=== PATIENT | male | born 1940 | race Caucasian/White ===

== ENCOUNTER 2018-03-29 00:31 | Emergency (ER) | payer MEDICARE, BC ==
--- NOTE | 2018-03-29 01:00 | EDM.PDOC ---
ED HPI GENERAL MEDICAL PROBLEM - General Chief Complaint: Drug or Alcohol Abuse Stated Complaint: DEPRESSION Time Seen by Provider: 03/29/18 00:40 Source of Information: Reports: Patient, EMS History Limitations: Reports: Intoxication - History of Present Illness INITIAL COMMENTS - FREE TEXT/NARRATIVE: 77-year-old male who was on an anti-depressant, it was delivered to his house this week but he wasn't home so he has to go get it at the post office and hasn' t done that. Tonight he was drinking, he had 3 large cleo Cokes and was feeling sad so called 911. He is not suicidal nor has he ever been suicidal. He was evaluated by the police and EMS and the police department recommended he be checked out. Now that he is here he feels fine, is very talkative and does not appear depressed. Associated Symptoms: Reports: Other (Very hard of hearing) denies pain Pain Score (Numeric/FACES): 0 - Related Data Allergies Allergy/AdvReac Type Severity Reaction Status Date / Time No Known Allergies Allergy Verified 03/29/18 00:35 Past Medical History HEENT History: Reports: Hard of Hearing Cardiovascular History: Reports: Hypertension, [place], Stents Genitourinary History: Reports: BPH, Prostate Disorder, Other (See Below) Other Genitourinary History: Prostate CA Psychiatric History: Reports: Depression Endocrine/Metabolic History: Reports: Diabetes, Type II Hematologic History: Reports: Anticoagulation Therapy Oncologic (Cancer) History: Reports: Prostate - Past Surgical History Cardiovascular Surgical History: Reports: Coronary Artery Bypass GI Surgical History: Reports: Appendectomy, Bariatric Procedure, Other (See Below) Other GI Surgeries/Procedures: bowel abscess Neurological Surgical History: Reports: Other (See Below) Other Neurological Surgeries/Procedures: back surgery, unknown type Musculoskeletal Surgical History: Reports: Shoulder Surgery Social & Family History - Tobacco Use Smoking Status *Q: Never Smoker - Caffeine Use Caffeine Use: Reports: Coffee - Recreational Drug Use Recreational Drug Use: No ED ROS GENERAL - Review of Systems Review Of Systems: See Below Constitutional: Denies: Fever, Chills Respiratory: Denies: Shortness of Breath Cardiovascular: Denies: Chest Pain GI/Abdominal: Denies: Nausea, Vomiting Neurological: Denies: Headache Psychiatric: Reports: Depression - Physical Exam Exam: See Below Exam Limited By: No Limitations General Appearance: Alert, No Apparent Distress Eye Exam: Bilateral Eye: EOMI Head Exam: Atraumatic Respiratory/Chest: No Respiratory Distress Cardiovascular: Regular Rate, Rhythm Neuro Exam (Abbreviated): Alert, Oriented, Other (Intoxicated but stable) Psychiatric: No: Depressed Mood, Flat Affect Skin Exam: Warm, Dry Course - Vital Signs Last Recorded V/S: Last Vital Signs Temp 95.5 F 03/29/18 01:00 Pulse 71 03/29/18 01:00 Resp 18 03/29/18 01:00 BP 94/56 L 03/29/18 01:00 Pulse Ox 96 03/29/18 01:00 - Re-Assessments/Exams Free Text/Narrative Re-Assessment/Exam: 03/29/18 00:57 Patient now is making normal eye contact, actually seems cheerful and said he feels back to normal. He doesn't drink very often and it just "got the best of him". He is not suicidal and will go get his medicine tomorrow. Departure - Departure Time of Disposition: 05:06 Disposition: Home, Self-Care 01 Condition: Fair Clinical Impression: Depression Qualifiers: Major depression recurrence: recurrent Active/Remission status: currently active Psychotic features: without psychotic features Alcohol intoxication Qualifiers: Complication of substance-induced condition: uncomplicated Qualified Code(s): F10.920 - Alcohol use, unspecified with intoxication, uncomplicated - Discharge Information Instructions: Alcohol Intoxication, [id number] Referrals: PCP,None [Primary Care Provider] - Forms: ED Department Discharge Care Plan Goals: Go to the post office tomorrow if possible to get your medicines. Start taking them as prescribed, avoid alcohol intake for a while until things settle down and you are able to take your medicine.
== END 2018-03-29 04:50 | disposition home or self-care (01) ==
LOC: JP.ED 00:31
DX: F33.2 Major depressive disorder, recurrent severe without psychotic features (principal); F10.120 Alcohol abuse with intoxication, uncomplicated; I10 Essential (primary) hypertension; I25.2 Old myocardial infarction; E11.9 Type 2 diabetes mellitus without complications
CPT/HCPCS: 99283; 99284